=== PATIENT | male | born 1995 | race Caucasian/White ===

== ENCOUNTER 2024-12-12 17:08 | Emergency (ER) | payer SELFPAY ==
[2024-12-12] MEDS ORDERED: Boostrix 0.5 ML (Tdap) VIAL (>/=7 yrs of age) ONE (17:30)
[2024-12-12] MEDS ORDERED: Lidocaine 1% (PF) 30 ML VIAL ONE (17:30)
[2024-12-12] MEDS ORDERED: Bacitracin 1 PK ONE (18:42)
== END 2024-12-12 18:51 | disposition home or self-care (01) ==
LOC: CSHERS 17:08
DX: S61.012A Laceration without foreign body of left thumb without damage to nail, initial encounter (principal); W26.8XXA Contact with other sharp object(s), not elsewhere classified, initial encounter; Y93.89 Activity, other specified; Y92.69 Other specified industrial and construction area as the place of occurrence of the external cause; Z23 Encounter for immunization
CPT/HCPCS: 12002; 90471; 90715